=== PATIENT | female | born 1965 | race Asian ===

== ENCOUNTER → 2023-03-28 | Outpatient (CLI) | payer OTHER | LOC: CANSCHCLI → MC.RAD 01-20 13:30 → COL.RAD 16:30 → MC.RAD 16:30 | DX: Z12.31 Encounter for screening mammogram for malignant neoplasm of breast (principal) ==

== ENCOUNTER → 2024-03-29 | Outpatient (CLI) | payer OTHER | LOC: MC.RAD 14:07 | DX: Z12.31 Encounter for screening mammogram for malignant neoplasm of breast (principal) ==